=== PATIENT | male | born 1990 | race Caucasian/White ===

== ENCOUNTER 2016-11-15 22:18 | Emergency (ER) | payer SELFPAY ==
[2016-11-15 22:30] VITALS: BP 139/89
--- NOTE | 2016-11-16 00:48 | EDM.PDOC ---
ED HPI GENERAL MEDICAL PROBLEM - General Chief Complaint: Lower Extremity Injury/Pain Stated Complaint: FOOT PAIN [id number] Time Seen by Provider: 11/16/16 00:45 Source of Information: Reports: Patient History Limitations: Reports: No Limitations - History of Present Illness INITIAL COMMENTS - FREE TEXT/NARRATIVE: gives 2 days h/o numbness in left foot, feels weird, denies trauma Left Feet Pain Score (Numeric/FACES): 8 - Related Data Allergies Allergy/AdvReac Type Severity Reaction Status Date / Time No Known Allergies Allergy Verified 11/15/16 22:24 Home Meds: Home Meds Venlafaxine HCl [Venlafaxine ER] 1 tab PO DAILY 06/16/14 [History] Ibuprofen [Motrin] 4 tab PO Q8H PRN 03/26/15 [History] Past Medical History - Past Health History Medical/Surgical History: Denies Medical/Surgical History HEENT History: Reports: Impaired Vision Musculoskeletal History: Reports: Other (See Below) Neurological History: Reports: Other (See Below) Other Neuro History: cataplexy Psychiatric History: Reports: Depression Other Dermatologic History: Tattoos - Infectious Disease History Infectious Disease History: Reports: None Social & Family History - Family History Family Medical History: Noncontributory - Tobacco Use Smoking Status *Q: Current Every Day Smoker Years of Tobacco use: 15 Packs/Tins Daily: 1.5 Month Tobacco Last Used: march Second Hand Smoke Exposure: Yes - Caffeine Use Caffeine Use: Reports: Energy Drinks, Soda, Tea - Alcohol Use Days Per Week of Alcohol Use: 0 - Recreational Drug Use Recreational Drug Use: Yes Drug Use in Last 12 Months: Yes Recreational Drug Type: Reports: Marijuana/Hashish, Methamphetamine Recreational Drug Use Frequency: Weekly - Living Situation & Occupation Living situation: Reports: Single Occupation: Employed Review of Systems - Review of Systems Review Of Systems: ROS reveals no pertinent complaints other than HPI. ED EXAM, GENERAL - Physical Exam Exam: See Below Exam Limited By: No Limitations General Appearance: Alert, WD/WN, No Apparent Distress Ears: Hearing Grossly Normal Throat/Mouth: Normal Voice, No Airway Compromise Head: Atraumatic Neck: Non-Tender, Full Range of Motion Respiratory/Chest: No Respiratory Distress Cardiovascular: Regular Rate, Rhythm GI/Abdominal: Soft, Non-Tender Back Exam: Paraspinal Tenderness, Other (palpable sciatic irritation down left side.) Extremities: Other (left foot no gross D/D, NV wnl, gait normal.) Neurological: Alert, Oriented, Normal Cognition, Normal Gait, No Motor/Sensory Deficits Psychiatric: Flat Affect Skin Exam: Warm, Dry Lymphatic: No Adenopathy Course - Vital Signs Last Recorded V/S: Last Vital Signs Temp 36.0 C 11/15/16 22:27 Pulse 81 11/15/16 22:27 Resp 16 11/15/16 22:27 BP 139/89 11/15/16 22:27 Pulse Ox 96 11/15/16 22:27 - Orders/Labs/Meds Orders: Active Orders 24 hr Category Date Time Status Blood Glucose Check, Bedside [RC] ONETIME Care 11/16/16 00:34 Active Labs: Laboratory Tests 11/16/16 Range/Units 00:38 POC Glucose 89 (70-105) mg/dl Departure - Departure Time of Disposition: 00:47 Disposition: Home, Self-Care 01 Condition: Good Clinical Impression: Left sided sciatica - Discharge Information Forms: ED Department Discharge Additional Instructions: 1) see clinic Thursday for MRI SCAN OF LUMBAR possible herniated disc 2) recheck as needed - My Orders Last 24 Hours: My Active Orders 11/16/16 00:34 Blood Glucose Check, Bedside [RC] ONETIME - Assessment/Plan Last 24 Hours: My Active Orders 11/16/16 00:34 Blood Glucose Check, Bedside [RC] ONETIME
== END 2016-11-16 00:49 | disposition home or self-care (01) ==
LOC: DL.ED 22:18
DX: M54.32 Sciatica, left side (principal); H54.7 Unspecified visual loss; F32.9 Major depressive disorder, single episode, unspecified; F17.210 Nicotine dependence, cigarettes, uncomplicated; Z79.899 Other long term (current) drug therapy
CPT/HCPCS: 82962; 99282; 99283

== ENCOUNTER 2017-03-23 01:19 | Emergency (ER) | payer SELFPAY ==
[2017-03-23 01:25] VITALS: BP 128/91
[2017-03-23] MEDS ORDERED: Sodium Chloride 0.9% 1,000 ML IV ONE (01:45)
--- NOTE | 2017-03-23 01:45 | EDM.PDOC ---
ED HPI GENERAL MEDICAL PROBLEM - General Chief Complaint: Gastrointestinal Problem Stated Complaint: PASSING BLOOD [id number] Time Seen by Provider: 03/23/17 01:42 Source of Information: Reports: Patient History Limitations: Reports: No Limitations - History of Present Illness INITIAL COMMENTS - FREE TEXT/NARRATIVE: states 12 hours ago had BM and saw lots of blood in toilet, now worried. Abdomen Pain Score (Numeric/FACES): 5 - Related Data Allergies Allergy/AdvReac Type Severity Reaction Status Date / Time No Known Allergies Allergy Verified 03/23/17 01:25 Home Meds: Home Meds Venlafaxine HCl [Venlafaxine ER] 1 tab PO DAILY 06/16/14 [History] Ibuprofen [Motrin] 4 tab PO Q8H PRN 03/26/15 [History] Past Medical History - Past Health History Medical/Surgical History: Denies Medical/Surgical History HEENT History: Reports: Impaired Vision Musculoskeletal History: Reports: Other (See Below) Neurological History: Reports: Other (See Below) Other Neuro History: cataplexy Psychiatric History: Reports: Depression Other Dermatologic History: Tattoos - Infectious Disease History Infectious Disease History: Reports: None Social & Family History - Family History Family Medical History: Noncontributory - Tobacco Use Smoking Status *Q: Current Every Day Smoker Years of Tobacco use: 5 Packs/Tins Daily: 1 Month Tobacco Last Used: march Second Hand Smoke Exposure: Yes - Caffeine Use Caffeine Use: Reports: Energy Drinks, Soda, Tea - Alcohol Use Days Per Week of Alcohol Use: 0 - Recreational Drug Use Recreational Drug Use: No Drug Use in Last 12 Months: Yes Recreational Drug Type: Reports: Marijuana/Hashish, Methamphetamine Recreational Drug Use Frequency: Weekly - Living Situation & Occupation Living situation: Reports: Single Occupation: Employed ED ROS GENERAL - Review of Systems Review Of Systems: ROS reveals no pertinent complaints other than HPI. ED EXAM, GI/ABD - Physical Exam Exam: See Below Exam Limited By: No Limitations General Appearance: Alert, WD/WN, No Apparent Distress, Anxious Ears: Hearing Grossly Normal Throat/Mouth: Normal Voice, No Airway Compromise Head: Atraumatic Neck: Non-Tender, Full Range of Motion Respiratory/Chest: No Respiratory Distress Cardiovascular: Regular Rate, Rhythm GI/Abdominal Exam: Soft, Guarding, Tender, Other (RLQ tender>). No: Distended, Rigid, Rebound Rectal (Males) Exam: Other (grossly bloody smear, no active bleeding.) Neurological: Alert, Oriented, Normal Cognition, Normal Gait, No Motor/Sensory Deficits Psychiatric: Anxious Skin Exam: Warm, Dry, Normal Color Lymphatic: No Adenopathy Course - Vital Signs Last Recorded V/S: Last Vital Signs Temp 36.4 C 03/23/17 01:21 Pulse 92 03/23/17 01:21 Resp 18 03/23/17 01:21 BP 128/91 H 03/23/17 01:21 Pulse Ox 97 03/23/17 01:21 - Orders/Labs/Meds Orders: Active Orders 24 hr Category Date Time Status Abdomen Pelvis w Cont [CT] Urgent Exams 03/23/17 02:07 Ordered Sodium Chloride 0.9% [Normal Saline] 1,000 ml Med 03/23/17 01:45 Active IV .BOLUS Medication Orders Sodium Chloride (Normal Saline) 1,000 mls @ 999 mls/hr IV .BOLUS ONE Stop: 03/23/17 02:45 Last Admin: 03/23/17 01:49 Dose: 999 mls/hr Labs: Laboratory Tests 03/23/17 03/23/17 Range/Units 01:35 01:35 WBC 17.4 H (5.0-10.0) 10^3/uL RBC 5.06 (4.6-6.2) 10^6/uL Hgb 15.4 (14.0-18.0) g/dL Hct 44.8 (40.0-54.0) % MCV 88.5 (80-100) fL MCH 30.4 (27.0-34.0) pg MCHC 34.4 (33.0-35.0) g/dL Plt Count 423 (150-450) 10^3/uL Neut % (Auto) 59.5 (42.2-75.2) % Lymph % (Auto) 29.4 (20.5-50.1) % [place] % (Auto) 9.5 H (2-8) % Eos % (Auto) 1.4 (1.0-3.0) % Baso % (Auto) 0.2 (0.0-1.0) % Sodium 139 (135-145) mmol/L Potassium 3.7 (3.6-5.0) mmol/L Chloride 100 L (101-111) mmol/L Carbon Dioxide 26.0 (21.0-31.0) mmol/L Anion Gap 16.7 BUN 18 (7-18) mg/dL Creatinine 0.9 (0.6-1.3) mg/dL Est Cr Clr Drug Dosing 128.43 mL/min Estimated GFR (MDRD) > 60 BUN/Creatinine Ratio 20.00 Glucose 91 (74-105) mg/dL Calcium 10.1 (8.4-10.2) mg/dl Total Bilirubin 1.5 H (0.2-1.0) mg/dL AST 20 (10-42) IU/L ALT 19 (10-60) IU/L Alkaline Phosphatase 102 (42-121) IU/L Total Protein 8.0 (6.7-8.2) g/dl Albumin 5.1 (3.2-5.5) g/dl Globulin 2.9 Albumin/Globulin Ratio 1.76 Meds: Medications Generic Name Dose Route Start Last Admin Trade Name Freq PRN Reason Stop Dose Admin Sodium Chloride 1,000 mls @ 999 mls/hr 03/23/17 01:45 03/23/17 01:49 Normal Saline IV 03/23/17 02:45 999 mls/hr .BOLUS ONE Administration Discontinued Medications Generic Name Dose Route Start Last Admin Trade Name Freq PRN Reason Stop Dose Admin Iopamidol 100 ml 03/23/17 02:07 03/23/17 02:19 Isovue-300 (61%) IVPUSH 03/23/17 02:08 100 ml ONETIME ONE Administration - Re-Assessments/Exams Free Text/Narrative Re-Assessment/Exam: 03/23/17 02:34 pt declined CAT in x-ray dept. explained to Pt about dangers of rupture appy. pt states has no pain now, it's all gone and doesn't want anymore tests and also states cannot pay the bill. explained to pt about medicaid aid. pt still adamant about leaving AMA. Departure - Departure Time of Disposition: 02:37 Disposition: Against Medical Advice 07 Condition: Fair Clinical Impression: Abdominal pain, Poor compliance Elevated WBC count Qualifiers: Leukocytosis type: other Qualified Code(s): D72.828 - Other elevated white blood cell count - Discharge Information Forms: ED Department Discharge, Refusal of Care AMA Additional Instructions: PLEASE RETURN IF YOUR CONDITION WORSENS OR IF YOU CHANGE YOUR MIND AVOID SOLID FOODS NEXT 48 HOURS FOLLOW UP AT CLINIC FOR GASTROENTEROLOGY REFERRAL - My Orders Last 24 Hours: My Active Orders 03/23/17 01:45 Sodium Chloride 0.9% [Normal Saline] 1,000 ml IV .BOLUS 03/23/17 02:07 Abdomen Pelvis w Cont [CT] Urgent - Assessment/Plan Last 24 Hours: My Active Orders 03/23/17 01:45 Sodium Chloride 0.9% [Normal Saline] 1,000 ml IV .BOLUS 03/23/17 02:07 Abdomen Pelvis w Cont [CT] Urgent
[2017-03-23 02:02] LABS: CHLORIDE,CL 100 mmol/L (101-111); SODIUM,NA 139 mmol/L (135-145)
[2017-03-23] MEDS: Iopamidol 612 MG/ML 100 ML Bottle IVPUSH ONE ×2 (02:19→02:35)
== END 2017-03-23 02:46 | disposition left against medical advice (07) ==
LOC: DL.ED 01:19
DX: R10.9 Unspecified abdominal pain (principal); D72.828 Other elevated white blood cell count; F17.210 Nicotine dependence, cigarettes, uncomplicated; Z79.899 Other long term (current) drug therapy
CPT/HCPCS: 36415; 80053; 82272; 85025; 96360; 99284; J7030; Q9967

== ENCOUNTER 2017-05-13 08:20 | Emergency (ER) | payer SELFPAY ==
[2017-05-13 08:29] VITALS: BP 153/95
--- NOTE | 2017-05-13 08:29 | EDM.PDOC ---
ED HPI GENERAL MEDICAL PROBLEM - General Chief Complaint: ENT Problem Stated Complaint: TOOTH ABSESS, RT SIDE Time Seen by Provider: 05/13/17 08:27 Source of Information: Reports: Patient, RN, RN Notes Reviewed History Limitations: Reports: No Limitations - History of Present Illness INITIAL COMMENTS - FREE TEXT/NARRATIVE: C/O dental pain with gum swelling at the right lower molar area at began a few days ago, but was much worse when he woke up this morning. Pt states that pain radiates into the Rt ear and down the right jaw. Denies face swelling, fever, chills, or drainage from the affected tooth or gums. Pt report a long history of dental decay without seeking dental care. Onset: Gradual Duration: Constant, Getting Worse Location: Reports: Other (dental) Quality: Reports: Ache, Same as Previous Episode, Throbbing Severity: Severe Improves with: Reports: None Worsens with: Reports: Eating Associated Symptoms: Reports: No Other Symptoms Right Oral/Mouth Pain Score (Numeric/FACES): 10 - Related Data Allergies Allergy/AdvReac Type Severity Reaction Status Date / Time No Known Allergies Allergy Verified 05/13/17 08:29 Home Meds: Home Meds Venlafaxine HCl [Venlafaxine ER] 1 tab PO DAILY 06/16/14 [History] Ibuprofen [Motrin] 4 tab PO Q8H PRN 03/26/15 [History] Past Medical History - Past Health History Medical/Surgical History: Denies Medical/Surgical History HEENT History: Reports: Impaired Vision Musculoskeletal History: Reports: Other (See Below) Neurological History: Reports: Other (See Below) Other Neuro History: cataplexy Psychiatric History: Reports: Depression Other Dermatologic History: Tattoos - Infectious Disease History Infectious Disease History: Reports: None Social & Family History - Family History Family Medical History: Noncontributory - Tobacco Use Smoking Status *Q: Current Every Day Smoker Years of Tobacco use: 5 Packs/Tins Daily: 1 Month Tobacco Last Used: march Second Hand Smoke Exposure: Yes - Caffeine Use Caffeine Use: Reports: Energy Drinks, Soda, Tea - Alcohol Use Days Per Week of Alcohol Use: 0 - Recreational Drug Use Recreational Drug Use: No Drug Use in Last 12 Months: Yes Recreational Drug Type: Reports: Marijuana/Hashish, Methamphetamine Recreational Drug Use Frequency: Weekly - Living Situation & Occupation Living situation: Reports: Single Occupation: Employed ED ROS ENT - Review of Systems Review Of Systems: ROS reveals no pertinent complaints other than HPI. ED EXAM, ENT - Physical Exam Exam: See Below Exam Limited By: No Limitations General Appearance: Alert, WD/WN, No Apparent Distress Eye Exam: Bilateral Eye: Normal Inspection Ears: Normal External Exam, Normal Canal, Hearing Grossly Normal, Normal TMs Nose: Normal Inspection Mouth/Throat: Normal Lips, Normal Oropharynx, Dental Abcess (Rt mandibular molar ), Dental Pain (with extensive dental decay, large deep caries at the Rt mandibular molars), Dental Tenderness, Gum Swelling (Rt mandibular molar region) Head: Atraumatic, Normocephalic Neck: Normal Inspection, Supple, Non-Tender, Full Range of Motion. No: Lymphadenopathy (L), Lymphadenopathy (R) Respiratory/Chest: No Respiratory Distress Neurological: Alert, No Motor/Sensory Deficits Psychiatric: Normal Affect, Normal Mood Skin: Warm, Dry, Intact, Normal Color, No Rash Course - Vital Signs Last Recorded V/S: Last Vital Signs Temp 36.2 C 05/13/17 08:25 Pulse 88 05/13/17 08:25 Resp 16 05/13/17 08:25 BP 153/95 H 05/13/17 08:25 Pulse Ox 97 05/13/17 08:25 - Orders/Labs/Meds Meds: Medications Discontinued Medications Generic Name Dose Route Start Last Admin Trade Name Rishabh PRN Reason Stop Dose Admin Bupivacaine HCl 10 ml 05/13/17 08:38 Sensorcaine-Mpf 0.5% INJECT 05/13/17 08:39 ONETIME ONE Clindamycin HCl 300 mg 05/13/17 08:38 Cleocin PO 05/13/17 08:39 ONETIME ONE Lidocaine HCl 15 ml 05/13/17 08:37 Xylocaine 2% Viscous PO 05/13/17 08:38 ONETIME ONE - Re-Assessments/Exams Free Text/Narrative Re-Assessment/Exam: 05/13/17 08:48 Mandibular dental block using Marcaine 0.5% 4cc, no complications. Departure - Departure Time of Disposition: 09:00 Disposition: Home, Self-Care 01 Condition: Good Clinical Impression: Dental caries, Abscessed tooth - Discharge Information Instructions: Dental Abscess, [id number], Dental Caries, [id number] Forms: ED Department Discharge Additional Instructions: Rx: Clindamycin 300mg Rx: Viscous Lidocaine 2% Rx: Tylenol Codeine 30mg/300mg *Do not drive while under the influence of this medication. Follow up with a dentist at the first available appointment.
[2017-05-13] MEDS ORDERED: Lidocaine 2% Viscous Solution 15 ML Cup PO ONE (08:37)
[2017-05-13] MEDS ORDERED: Bupivacaine 0.5% 10 ML SDV INJECT ONE (08:38)
[2017-05-13] MEDS ORDERED: Clindamycin HCl 150 MG Cap PO ONE (08:38)
== END 2017-05-13 09:12 | disposition home or self-care (01) ==
LOC: DL.ED 08:20
DX: K02.9 Dental caries, unspecified (principal); K04.7 Periapical abscess without sinus; F32.9 Major depressive disorder, single episode, unspecified; F17.210 Nicotine dependence, cigarettes, uncomplicated; Z79.899 Other long term (current) drug therapy
CPT/HCPCS: 64400; 99283; A9270

== ENCOUNTER 2017-12-19 20:00 | Emergency (ER) | payer SELFPAY ==
[2017-12-19 21:08] VITALS: BP 162/123
[2017-12-19] MEDS ORDERED: Acetaminophen/HYDROcodone 325-10 MG Tab PO ONE (22:13)
[2017-12-19] MEDS ORDERED: Clindamycin HCl 150 MG Cap PO ONE (22:13)
--- NOTE | 2017-12-19 22:14 | EDM.PDOC ---
ED HPI GENERAL MEDICAL PROBLEM - General Chief Complaint: ENT Problem Stated Complaint: TOOTH PAIN [id number] Time Seen by Provider: 12/19/17 22:08 Source of Information: Reports: Patient History Limitations: Reports: No Limitations - History of Present Illness INITIAL COMMENTS - FREE TEXT/NARRATIVE: angry pt c/o tooth pain. explained to angry pt that there is no dentist cardiology consultant here but I can give him ABX & pain meds tonight with a script. 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 Right Face Pain Score (Numeric/FACES): 10 - Related Data Allergies Allergy/AdvReac Type Severity Reaction Status Date / Time No Known Allergies Allergy Verified 12/19/17 20:43 Home Meds: Home Meds Venlafaxine HCl [Venlafaxine ER] 125 mg PO DAILY 06/16/14 [History] Ibuprofen [Motrin] 4 tab PO Q8H PRN 03/26/15 [History] Past Medical History - Past Health History Medical/Surgical History: Denies Medical/Surgical History HEENT History: Reports: Impaired Vision Cardiovascular History: Reports: None Respiratory History: Reports: None Gastrointestinal History: Reports: None Genitourinary History: Reports: None Musculoskeletal History: Reports: Other (See Below) Neurological History: Reports: Other (See Below) Other Neuro History: cataplexy Psychiatric History: Reports: Depression Endocrine/Metabolic History: Reports: None Hematologic History: Reports: None Immunologic History: Reports: None Oncologic (Cancer) History: Reports: None Other Dermatologic History: Tattoos - Infectious Disease History Infectious Disease History: Reports: None - Past Surgical History Head Surgeries/Procedures: Reports: None Social & Family History - Family History Family Medical History: Noncontributory - Tobacco Use Smoking Status *Q: Current Every Day Smoker Years of Tobacco use: 2 Packs/Tins Daily: 1.5 - Caffeine Use Caffeine Use: Reports: Soda Other Caffeine Use: 12 cans mt. dew /day - Recreational Drug Use Recreational Drug Use: No - Living Situation & Occupation Living situation: Reports: Single Occupation: Employed ED ROS ENT - Review of Systems Review Of Systems: ROS reveals no pertinent complaints other than HPI. ED EXAM, ENT - Physical Exam Exam: See Below Exam Limited By: No Limitations General Appearance: Alert, WD/WN, Mild Distress, Other (angry & cussing ) Ears: Hearing Grossly Normal Mouth/Throat: Dental Abcess, Dental Pain, Dental Tenderness, Other (extensive decay along right lower molars). No: Drooling Head: Atraumatic Neck: Non-Tender, Full Range of Motion Respiratory/Chest: No Respiratory Distress Cardiovascular: Regular Rate, Rhythm GI/Abdominal: Soft, Non-Tender Neurological: Alert, Oriented, Normal Cognition, Normal Gait, No Motor/Sensory Deficits Psychiatric: Other (angry) Skin: Warm, Intact Lymphatic: No Adenopathy Course - Vital Signs Last Recorded V/S: Last Vital Signs Temp 36.7 C 12/19/17 20:37 Pulse 70 12/19/17 20:37 Resp 26 H 12/19/17 21:07 BP 162/123 H 12/19/17 21:07 Pulse Ox 100 12/19/17 20:37 - Orders/Labs/Meds Meds: Medications Discontinued Medications Generic Name Dose Route Start Last Admin Trade Name Freq PRN Reason Stop Dose Admin Hydrocodone Bitart/Acetaminophen 1 tab 12/19/17 22:13 12/19/17 22:18 [place] 325-10 Mg PO 12/19/17 22:14 1 tab ONETIME ONE Administration Clindamycin HCl 300 mg 12/19/17 22:13 12/19/17 22:18 Cleocin PO 12/19/17 22:14 300 mg ONETIME ONE Administration Departure - Departure Time of Disposition: 22:20 Disposition: Home, Self-Care 01 Condition: Fair Clinical Impression: Dental caries extending into dentin, Abscessed tooth - Discharge Information Instructions: Dental Abscess, [id number] Forms: ED Department Discharge Additional Instructions: 1) see dentist Thursday 2) avoid solid foods rx given; clindamycin 150mg qid x 40 vicodin 5/325mg bid x 4
== END 2017-12-19 22:23 | disposition home or self-care (01) ==
LOC: DL.ED 20:00
DX: K02.9 Dental caries, unspecified (principal); K04.7 Periapical abscess without sinus; F17.210 Nicotine dependence, cigarettes, uncomplicated; Z79.899 Other long term (current) drug therapy
CPT/HCPCS: 99282; A9270; 99283

== ENCOUNTER 2020-01-14 04:38 | Emergency (ER) | payer MEDICAID, OTHER ==
[2020-01-14] MEDS ORDERED: Lidocaine 2% Viscous Solution 15 ML Cup PO ONE (04:39)
[2020-01-14] MEDS ORDERED: Clindamycin HCl 150 MG Cap PO ONE (04:39)
[2020-01-14 04:46] VITALS: BP 152/111; PULSE 55
[2020-01-14] MEDS ORDERED: Clindamycin HCl 150 MG Cap ONE (05:07)
[2020-01-14] MEDS ORDERED: Lidocaine 2% Viscous Solution 15 ML Cup ONE (05:07)
--- NOTE | 2020-01-14 05:09 | EDM.PDOC ---
ED HPI GENERAL MEDICAL PROBLEM - General Chief Complaint: ENT Problem Stated Complaint: TOOTH PAIN Time Seen by Provider: 01/14/20 04:55 Source of Information: Reports: Patient, RN History Limitations: Reports: No Limitations - History of Present Illness INITIAL COMMENTS - FREE TEXT/NARRATIVE: c/o dental pain Right Lower Tooth/Teeth Pain Score (Numeric/FACES): 10 - Related Data Allergies Allergy/AdvReac Type Severity Reaction Status Date / Time No Known Allergies Allergy Verified 01/14/20 04:43 Home Meds: Home Meds Venlafaxine HCl [Venlafaxine ER] 125 mg PO DAILY 06/16/14 [History] Ibuprofen [Motrin] 4 tab PO Q8H PRN 03/26/15 [History] Past Medical History - Past Health History Medical/Surgical History: Denies Medical/Surgical History HEENT History: Reports: Impaired Vision Cardiovascular History: Reports: None Respiratory History: Reports: None Gastrointestinal History: Reports: None Genitourinary History: Reports: None Musculoskeletal History: Reports: Other (See Below) Neurological History: Reports: Other (See Below) Other Neuro History: cataplexy Psychiatric History: Reports: Depression Endocrine/Metabolic History: Reports: None Hematologic History: Reports: None Immunologic History: Reports: None Oncologic (Cancer) History: Reports: None Other Dermatologic History: Tattoos - Infectious Disease History Infectious Disease History: Reports: None - Past Surgical History Head Surgeries/Procedures: Reports: None Social & Family History - Family History Family Medical History: Noncontributory - Tobacco Use Smoking Status *Q: Current Every Day Smoker Years of Tobacco use: 10 Packs/Tins Daily: 1 - Caffeine Use Caffeine Use: Reports: Coffee, Energy Drinks, Soda, Tea Other Caffeine Use: 12 cans mt. dew /day - Recreational Drug Use Recreational Drug Use: Yes Recreational Drug Type: Reports: Marijuana/Hashish - Living Situation & Occupation Living situation: Reports: Single Occupation: Employed ED ROS ENT - Review of Systems Review Of Systems: See Below Constitutional: Reports: No Symptoms HEENT: Reports: Dental Pain Respiratory: Reports: No Symptoms Cardiovascular: Reports: No Symptoms Endocrine: Reports: No Symptoms GI/Abdominal: Reports: No Symptoms : Reports: No Symptoms Musculoskeletal: Reports: No Symptoms Skin: Reports: No Symptoms Neurological: Reports: No Symptoms ED EXAM, ENT - Physical Exam Exam: See Below Exam Limited By: No Limitations General Appearance: Alert, Mild Distress Eye Exam: Bilateral Eye: EOMI, PERRL Nose: Normal Inspection Mouth/Throat: No: Normal Teeth (extremely poor dentation, multiple upper and lower molars decayed bilateral flush with gum line, mild erythema and slight swelling lower right medial posterior gum tissue), Dental Pain Head: Atraumatic, Normocephalic Neck: Normal Inspection, Full Range of Motion. No: Limited Range of Motion, Lymphadenopathy (L), Lymphadenopathy (R) Respiratory/Chest: No Respiratory Distress, Lungs Clear, Normal Breath Sounds Cardiovascular: Normal Peripheral Pulses, Regular Rate, Rhythm GI/Abdominal: Normal Bowel Sounds Extremities: Normal Inspection, Normal Range of Motion Neurological: Alert, Oriented, CN II-XII Intact, Normal Reflexes Course - Vital Signs Last Recorded V/S: Last Vital Signs Temp 98.1 F 01/14/20 04:44 Pulse 55 L 01/14/20 04:44 Resp 16 01/14/20 04:44 BP 152/111 H 01/14/20 04:44 Pulse Ox 99 01/14/20 04:44 - Orders/Labs/Meds Meds: Medications Discontinued Medications Generic Name Dose Route Start Last Admin Trade Name Mikaq PRN Reason Stop Dose Admin Clindamycin HCl Confirm 01/14/20 05:07 Cleocin Administered 01/14/20 05:08 Dose 300 mg .ROUTE .STK-MED ONE Lidocaine HCl Confirm 01/14/20 05:07 Xylocaine 2% Viscous Administered 01/14/20 05:08 Dose 15 ml .ROUTE .STK-MED ONE Departure - Departure Time of Disposition: 05:06 Disposition: Home, Self-Care 01 Condition: Good Clinical Impression: Dental caries, Abscessed tooth - Discharge Information *PRESCRIPTION DRUG MONITORING PROGRAM REVIEWED*: No *COPY OF PRESCRIPTION DRUG MONITORING REPORT IN PATIENT SARITA: No Instructions: Dental Abscess, [id number] Referrals: PCP,None [Primary Care Provider] - Forms: ED Department Discharge Additional Instructions: viscous lidocaine apply thin film to affected area every 2 hours as needed for oral discomfort avoid chewing on affected side avoid liquids that are either hot or cold alternate tylenol 650mg and ibuprofen 600mg every 4 hours as needed for severe discomfort Follow up with Dentist on Thursday morning clindamycin 300mg three times daily for one week Sepsis Event Note (ED) - Evaluation Sepsis Screening Result: No Definite Risk - Focused Exam Vital Signs: Vital Signs Temp Pulse Resp BP Pulse Ox 01/14/20 04:44 98.1 F 55 L 16 152/111 H 99
== END 2020-01-14 05:13 | disposition home or self-care (01) ==
LOC: DL.ED 04:38
DX: K04.7 Periapical abscess without sinus (principal); K02.9 Dental caries, unspecified; K00.7 Teething syndrome; F32.9 Major depressive disorder, single episode, unspecified; F17.210 Nicotine dependence, cigarettes, uncomplicated; Z79.899 Other long term (current) drug therapy
CPT/HCPCS: 99282; A9270

== ENCOUNTER 2020-04-26 20:14 | Emergency (ER) | payer MEDICAID ==
[2020-04-26] MEDS ORDERED: Lidocaine 2% Viscous Solution 15 ML Cup PO ONE (20:15)
[2020-04-26] MEDS ORDERED: Acetaminophen/HYDROcodone 325-10 MG Tab PO ONE (20:15)
[2020-04-26 20:31] VITALS: BP 170/105; PULSE 95
--- NOTE | 2020-04-26 20:32 | EDM.PDOC ---
ED HPI GENERAL MEDICAL PROBLEM - General Chief Complaint: ENT Problem Stated Complaint: TOOTH INFECTION Time Seen by Provider: 04/26/20 20:28 Source of Information: Reports: Patient History Limitations: Reports: No Limitations - History of Present Illness INITIAL COMMENTS - FREE TEXT/NARRATIVE: c/o recurrent tooth problem - Related Data Allergies Allergy/AdvReac Type Severity Reaction Status Date / Time No Known Allergies Allergy Verified 01/14/20 04:43 Home Meds: Home Meds Venlafaxine HCl [Venlafaxine ER] 125 mg PO DAILY 06/16/14 [History] Ibuprofen [Motrin] 4 tab PO Q8H PRN 03/26/15 [History] Past Medical History - Past Health History Medical/Surgical History: Denies Medical/Surgical History HEENT History: Reports: Impaired Vision Cardiovascular History: Reports: None Respiratory History: Reports: None Gastrointestinal History: Reports: None Genitourinary History: Reports: None Musculoskeletal History: Reports: Other (See Below) Neurological History: Reports: Other (See Below) Other Neuro History: cataplexy Psychiatric History: Reports: Depression Endocrine/Metabolic History: Reports: None Hematologic History: Reports: None Immunologic History: Reports: None Oncologic (Cancer) History: Reports: None Other Dermatologic History: Tattoos - Infectious Disease History Infectious Disease History: Reports: None - Past Surgical History Head Surgeries/Procedures: Reports: None Social & Family History - Family History Family Medical History: No Pertinent Family History - Caffeine Use Caffeine Use: Reports: Coffee, Energy Drinks, Soda, Tea Other Caffeine Use: 12 cans mt. dew /day - Living Situation & Occupation Living situation: Reports: Single Occupation: Employed ED ROS ENT - Review of Systems Review Of Systems: Comprehensive ROS is negative, except as noted in HPI. ED EXAM, ENT - Physical Exam Exam: See Below Exam Limited By: No Limitations General Appearance: Alert, WD/WN, Mild Distress, Other (discomfort) Ears: Hearing Grossly Normal Mouth/Throat: Dental Abcess, Dental Pain, Dental Tenderness, Other (multiple decay) Head: Atraumatic Neck: Non-Tender, Full Range of Motion Respiratory/Chest: No Respiratory Distress Cardiovascular: Regular Rate, Rhythm GI/Abdominal: Soft, Non-Tender (Male) Exam: Deferred Rectal (Males) Exam: Deferred Neurological: Alert, Oriented, Normal Cognition, Normal Gait, No Motor/Sensory Deficits Psychiatric: Flat Affect Skin: Warm, Dry, Normal Color Lymphatic: No Adenopathy Course - Orders/Labs/Meds Meds: Medications Discontinued Medications Generic Name Dose Route Start Last Admin Trade Name Rishabh PRN Reason Stop Dose Admin Clindamycin HCl 300 mg 04/26/20 20:27 Cleocin PO 04/26/20 20:28 ONETIME ONE Departure - Departure Time of Disposition: 20:30 Disposition: Home, Self-Care 01 Condition: Good Clinical Impression: Dental caries, Dental caries extending into dentin, Dental abscess - Discharge Information Instructions: Dental Abscess, [id number] Additional Instructions: 1) avoid solid foods 2) see Dentist Thursday rx togo; viscous lido norco x1 rx given; clindamycin 300mg qid x 40
[2020-04-26] MEDS: Lidocaine 2% Viscous Solution 15 ML Cup ONE (20:46)
[2020-04-26] MEDS: Acetaminophen/HYDROcodone 325-10 MG Tab ONE (20:47)
[2020-04-26] MEDS: Clindamycin HCl 150 MG Cap PO ONE (20:48)
== END 2020-04-26 20:51 | disposition home or self-care (01) ==
LOC: DL.ED 20:14
DX: K04.7 Periapical abscess without sinus (principal); K02.9 Dental caries, unspecified; F32.9 Major depressive disorder, single episode, unspecified; Z79.899 Other long term (current) drug therapy
CPT/HCPCS: 99282; A9270

== ENCOUNTER 2020-06-15 21:48 | Emergency (ER) | payer MEDICAID ==
--- NOTE | 2020-06-15 22:00 | EDM.PDOC ---
ED HPI GENERAL MEDICAL PROBLEM - General Chief Complaint: ENT Problem Stated Complaint: ABCESS BOTTOM RIGHT JAW Time Seen by Provider: 06/15/20 21:59 Source of Information: Reports: Patient, RN, RN Notes Reviewed - History of Present Illness INITIAL COMMENTS - FREE TEXT/NARRATIVE: Patient is a 29 year old male who presents to the ER with c/o dental abscess. Patient states he has had dental abscess in the past but not "like this". He states it has never been this swollen. Patient states this began earlier today. Patient denies fever or chills, N/V/D. Denies allergies to any medications. Onset: Gradual Right Lower Tooth/Teeth Pain Score (Numeric/FACES): 7 - Related Data Allergies Allergy/AdvReac Type Severity Reaction Status Date / Time No Known Allergies Allergy Verified 06/15/20 22:07 Home Meds: Home Meds Venlafaxine HCl [Venlafaxine ER] 125 mg PO DAILY 06/16/14 [History] Ibuprofen [Motrin] 4 tab PO Q8H PRN 03/26/15 [History] Past Medical History - Past Health History Medical/Surgical History: Denies Medical/Surgical History HEENT History: Reports: Impaired Vision Cardiovascular History: Reports: None Respiratory History: Reports: None Gastrointestinal History: Reports: None Genitourinary History: Reports: None Musculoskeletal History: Reports: Other (See Below) Neurological History: Reports: Other (See Below) Other Neuro History: cataplexy Psychiatric History: Reports: Addiction, Depression Endocrine/Metabolic History: Reports: None Hematologic History: Reports: None Immunologic History: Reports: None Oncologic (Cancer) History: Reports: None Other Dermatologic History: Tattoos - Infectious Disease History Infectious Disease History: Reports: None - Past Surgical History Head Surgeries/Procedures: Reports: None Social & Family History - Family History Family Medical History: No Pertinent Family History - Caffeine Use Caffeine Use: Reports: Coffee, Energy Drinks, Soda, Tea Other Caffeine Use: 12 cans mt. dew /day - Living Situation & Occupation Living situation: Reports: Single Occupation: Employed ED ROS GENERAL - Review of Systems Review Of Systems: Comprehensive ROS is negative, except as noted in HPI. ED EXAM, GENERAL - Physical Exam Exam: See Below Exam Limited By: No Limitations General Appearance: Alert, WD/WN, Mild Distress Eye Exam: Bilateral Eye: EOMI, Normal Inspection Ears: Normal External Exam, Hearing Grossly Normal Nose: Normal Inspection Throat/Mouth: Normal Voice, No Airway Compromise, Inflammation, Other (abscess to the right lower gums, lateral to the first molar) Head: Atraumatic, Normocephalic Neck: Normal Inspection, Supple, Non-Tender, Full Range of Motion Respiratory/Chest: No Respiratory Distress, Lungs Clear, Normal Breath Sounds, No Accessory Muscle Use, Chest Non-Tender Cardiovascular: Normal Peripheral Pulses, Regular Rate, Rhythm, No Edema, No Gallop, No JVD, No Murmur, No Rub Peripheral Pulses: 2+: Radial (L), Radial (R) GI/Abdominal: Normal Bowel Sounds, Soft, Non-Tender (Male) Exam: Deferred Rectal (Males) Exam: Deferred Back Exam: Normal Inspection, Full Range of Motion, NT Extremities: Normal Inspection, Normal Range of Motion, Non-Tender, Normal Capillary Refill, No Pedal Edema Neurological: Alert, Oriented, CN II-XII Intact, Normal Cognition, Normal Gait, Normal Reflexes, No Motor/Sensory Deficits Psychiatric: Normal Affect, Normal Mood Skin Exam: Warm, Dry, Intact, Normal Color, No Rash Lymphatic: No Adenopathy ED GENERAL MEDICAL PROCEDURES - Additional/Other Procedure(s) Other (Free Text) Procedure(s): Large abscess in the right lower gums was broken open with provider's gloved finger. Area probed for loculations. Moderate amount of purulent bloody drainage from the area. Patient tolerated well. Viscous lidocaine was applied on a gauze prior to the procedure as well as after. No complications. Course - Vital Signs Last Recorded V/S: Last Vital Signs Temp 98.9 F 06/15/20 21:58 Pulse 99 06/15/20 21:58 Resp 19 06/15/20 21:58 BP 161/100 H 06/15/20 21:58 Pulse Ox 100 06/15/20 21:58 - Orders/Labs/Meds Meds: Medications Discontinued Medications Generic Name Dose Route Start Last Admin Trade Name Freq PRN Reason Stop Dose Admin Hydrocodone Bitart/Acetaminophen 1 tab 06/15/20 22:06 06/15/20 22:14 [place] 325-10 Mg PO 06/15/20 22:07 1 tab ONETIME ONE Administration Amoxicillin 500 mg 06/15/20 22:06 06/15/20 22:14 Amoxil PO 06/15/20 22:07 500 mg ONETIME ONE Administration Lidocaine HCl 15 ml 06/15/20 22:06 06/15/20 22:14 Xylocaine 2% Viscous PO 06/15/20 22:07 15 ml ONETIME ONE Administration Departure - Departure Time of Disposition: 22:28 Disposition: Home, Self-Care 01 Condition: Good Clinical Impression: Dental caries extending into dentin, Abscessed tooth - Discharge Information *PRESCRIPTION DRUG MONITORING PROGRAM REVIEWED*: No *COPY OF PRESCRIPTION DRUG MONITORING REPORT IN PATIENT SARITA: No Instructions: Dental Abscess, [id number] Forms: ED Department Discharge Additional Instructions: RX: Amoxicillin, [place] x5 May use tylenol and/or Ibuprofen as directed for pain/fever Follow up with dentist ANA Swish with mouthwash 2-3 times daily May use Anbesol or Orajel as tolerated/directed Sepsis Event Note (ED) - Focused Exam Vital Signs: Vital Signs Temp Pulse Resp BP Pulse Ox 06/15/20 21:58 98.9 F 99 19 161/100 H 100
[2020-06-15] MEDS ORDERED: Amoxicillin 500 MG Cap PO ONE (22:06)
[2020-06-15] MEDS ORDERED: Lidocaine 2% Viscous Solution 15 ML Cup PO ONE (22:06)
[2020-06-15] MEDS ORDERED: Acetaminophen/HYDROcodone 325-10 MG Tab PO ONE (22:06)
[2020-06-15 22:07] VITALS: BP 161/100; PULSE 99
== END 2020-06-15 22:37 | disposition home or self-care (01) ==
LOC: DL.ED 21:48
DX: K04.7 Periapical abscess without sinus (principal); K02.9 Dental caries, unspecified
CPT/HCPCS: 99282; 99283; A9270

== ENCOUNTER 2020-11-18 18:57 | Emergency (ER) | payer MEDICAID ==
[2020-11-18] MEDS ORDERED: Ketorolac 30 MG/ML SDV IM ONE (20:54)
[2020-11-18] MEDS ORDERED: Penicillin V Potassium 250 MG Tab PO ONE (21:00)
--- NOTE | 2020-11-18 21:02 | EDM.PDOC ---
ED HPI GENERAL MEDICAL PROBLEM - General Chief Complaint: ENT Problem Stated Complaint: TEETH PAIN ALL THE BACK ONES ON THE LEFT SIDE Time Seen by Provider: 11/18/20 20:30 Source of Information: Reports: Patient, RN History Limitations: Reports: No Limitations - History of Present Illness INITIAL COMMENTS - FREE TEXT/NARRATIVE: 30 year-old male who presents to the ER with complaints of dental pain x 1 day. Patient reports pain has been intermittent for over the past 1 month. He has tried Orajel and Tylenol with little relief. He rates pain as an 8 out of 10 10 being the worst pain and describes it as throbbing. He reports he is supposed to see a dentist but has not been able to get to it. Nothing makes pain worse or better. Has any fevers, chills, shortness of breath, chest pain or palpitations. Tooth/Teeth Pain Score (Numeric/FACES): 10 - Related Data Allergies Allergy/AdvReac Type Severity Reaction Status Date / Time No Known Allergies Allergy Verified 11/18/20 19:17 Home Meds: Home Meds Venlafaxine HCl [Venlafaxine ER] 125 mg PO DAILY 06/16/14 [History] Ibuprofen [Motrin] 4 tab PO Q8H PRN 03/26/15 [History] Past Medical History - Past Health History Medical/Surgical History: Denies Medical/Surgical History HEENT History: Reports: Impaired Vision Cardiovascular History: Reports: None Respiratory History: Reports: None Gastrointestinal History: Reports: None Genitourinary History: Reports: None Musculoskeletal History: Reports: Other (See Below) Neurological History: Reports: Other (See Below) Other Neuro History: cataplexy Psychiatric History: Reports: Addiction, Depression Endocrine/Metabolic History: Reports: None Hematologic History: Reports: None Immunologic History: Reports: None Oncologic (Cancer) History: Reports: None Other Dermatologic History: Tattoos - Infectious Disease History Infectious Disease History: Reports: None - Past Surgical History Head Surgeries/Procedures: Reports: None Social & Family History - Family History Family Medical History: No Pertinent Family History - Tobacco Use Tobacco Use Status *Q: Current Every Day Tobacco User Years of Tobacco use: 10 Packs/Tins Daily: 1 - Caffeine Use Caffeine Use: Reports: Coffee, Energy Drinks, Soda, Tea, Other Other Caffeine Use: 12 cans mt. dew /day - Recreational Drug Use Recreational Drug Use: Yes Recreational Drug Type: Reports: Marijuana/Hashish - Living Situation & Occupation Living situation: Reports: Single Occupation: Employed ED ROS ENT - Review of Systems Review Of Systems: Comprehensive ROS is negative, except as noted in HPI. ED EXAM, ENT - Physical Exam Exam: See Below Eye Exam: Bilateral Eye: EOMI, PERRL Ears: Normal External Exam, Normal Canal, Hearing Grossly Normal, Normal TMs Nose: Normal Inspection, Normal Mucousa, No Blood Mouth/Throat: Dental Tenderness (on the left lower molars. Cavities also noted. A couple of his molars have also decayed.) Head: Atraumatic, Normocephalic Neck: Normal Inspection, Supple, Non-Tender, Full Range of Motion Respiratory/Chest: No Respiratory Distress, Lungs Clear, Normal Breath Sounds, No Accessory Muscle Use, Chest Non-Tender Cardiovascular: Normal Peripheral Pulses, Regular Rate, Rhythm, No Edema, No Gallop, No JVD, No Murmur, No Rub GI/Abdominal: Normal Bowel Sounds, Soft, Non-Tender, No Organomegaly, No Distention, No Abnormal Bruit, No Mass Neurological: Alert, Oriented Psychiatric: Normal Affect, Normal Mood Skin: Warm Lymphatic: No Adenopathy Course - Vital Signs Last Recorded V/S: Last Vital Signs Temp 97.2 F 11/18/20 21:18 Pulse 76 11/18/20 21:18 Resp 18 11/18/20 21:18 BP 145/96 H 11/18/20 21:18 Pulse Ox 100 11/18/20 21:18 - Orders/Labs/Meds Meds: Medications Discontinued Medications Generic Name Dose Route Start Last Admin Trade Name Rishabh PRN Reason Stop Dose Admin Ketorolac Tromethamine 30 mg 11/18/20 20:54 11/18/20 21:04 Ketorolac 30 Mg/Ml Sdv IM 11/18/20 20:55 30 mg ONETIME ONE Administration Penicillin V Potassium 500 mg 11/18/20 21:00 11/18/20 21:04 Penicillin V Potassium 250 Mg Tab PO 11/18/20 21:01 500 mg Q12HR ONE Administration - Re-Assessments/Exams Free Text/Narrative Re-Assessment/Exam: Advised concerning of exam findings. Toradol 30 mg IM administered. Encourage patient to follow-up with dentist. Penicillin VK 500 mg administered in the ER with an Rx sent home with patient. Encourage patient to finish antibiotic tr eatment. Also encouraged dental hygiene. ibuprofen /Tylenol as needed for discomfort. 11/18/20 21:37 Departure - Departure Time of Disposition: 21:06 Disposition: Home, Self-Care 01 Condition: Good Clinical Impression: Pain, dental, Dental cavities - Discharge Information Forms: ED Department Discharge Additional Instructions: Encourage patient to finish antibiotic treatment. Also encouraged dental hygiene. Ibuprofen /Tylenol as needed for discomfort. Follow-up with dentist. Sepsis Event Note (ED) - Evaluation Sepsis Screening Result: No Definite Risk - Focused Exam Vital Signs: Vital Signs Temp Pulse Resp BP Pulse Ox 11/18/20 21:18 97.2 F 76 18 145/96 H 100 11/18/20 19:15 96.8 F L 52 L 20 175/107 H 100
[2020-11-18 21:20] VITALS: BP 145/96; PULSE 76
== END 2020-11-18 21:20 | disposition home or self-care (01) ==
LOC: DL.ED 18:57
DX: K02.9 Dental caries, unspecified (principal); Z72.0 Tobacco use
CPT/HCPCS: 96372; 99282; A9270; J1885; 99283

== ENCOUNTER 2021-06-03 22:49 | Emergency (ER) | payer MEDICAID ==
[2021-06-03 23:03] VITALS: PULSE 105
[2021-06-03 23:54] LABS: CORONAVIRUS COVID-19 NAA POSITIVE (NEGATIVE)
== END 2021-06-04 00:17 | disposition left against medical advice (07) ==
LOC: DL.ED 22:49
DX: R50.9 Fever, unspecified (principal); Z53.21 Procedure and treatment not carried out due to patient leaving prior to being seen by health care provider; Z20.822 Contact with and (suspected) exposure to COVID-19
CPT/HCPCS: 0240U

== ENCOUNTER 2025-01-20 13:01 | Emergency (ER) | payer MEDICAID ==
[2025-01-20] MEDS: Ketorolac 30 MG/ML SDV IM ONE (13:31)
[2025-01-20 13:37] VITALS: BP 141/85; PULSE 85
== END 2025-01-20 13:31 | disposition home or self-care (01) ==
LOC: DL.ED 13:01
DX: K04.7 Periapical abscess without sinus (principal); Z79.899 Other long term (current) drug therapy
CPT/HCPCS: 96372; 99282; J1885

== ENCOUNTER 2025-01-25 13:38 | Emergency (ER) | payer MEDICAID ==
[2025-01-25] MEDS ORDERED: Sodium Chloride 0.9% 10 ML Syringe FLUSH PRN (14:00)
[2025-01-25] MEDS: Ondansetron 4 MG/2 ML SDV IVPUSH ONE (14:09)
[2025-01-25] MEDS: fentaNYL 100 MCG/2 ML SDV IVPUSH ONE (14:09)
[2025-01-25 14:17] LABS: BASOPHILS PERCENT AUTO 0.2 % (0.0-1.0); EOSINOPHILS PERCENT AUTO 2.0 % (1.0-3.0); LYMPHOCYTES PERCENT AUTO 28.2 % (20.5-50.1); MONOCYTES PERCENT AUTO 7.4 % (2-8); NEUTROPHILS PERCENT AUTO 62.2 % (42.2-75.2); PLATELET COUNT,PLT 525 10^3/uL (150-450); RED BLOOD CELL COUNT 5.57 10^6/uL (4.6-6.2); WHITE BLOOD CELL COUNT,WBC 13.8 10^3/uL (5.0-10.0)
[2025-01-25 14:38] LABS: A/G RATIO 1.1; ALANINE AMINOTRANSFERASE,ALT 77 U/L (16-63); ASPARTATE AMNIOTRANSFERASE,AST 30 U/L (15-37); BILIRUBIN TOTAL 0.3 mg/dL (0.2-1.0); BLOOD UREA NITROGEN,BUN 15 mg/dL (7-18); CARBON DIOXIDE,CO2 30 mmol/L (21-32); CHLORIDE,CL 103 mmol/L (98-107); CREATININE 0.88 mg/dL (0.70-1.30); GLUCOSE RANDOM 103 mg/dL (70-99); POTASSIUM,K 4.3 mmol/L (3.5-5.1); PROTEIN TOTAL,TP 8.2 g/dL (6.4-8.2); SODIUM,NA 140 mmol/L (136-145)
[2025-01-25 14:39] LABS: ESTIMATED GFR 116 mL/min (>=60)
[2025-01-25] MEDS: Iopamidol 612 MG/ML 100 ML Bottle IVPUSH ONE (14:46)
[2025-01-25] MEDS: Ketorolac 30 MG/ML SDV IVPUSH ONE (15:56)
[2025-01-25] MEDS: Lidocaine 2% Viscous Solution 15 ML UD TOP ONE (15:58)
[2025-01-25 18:57] VITALS: BP 156/113; PULSE 53
== END 2025-01-25 17:50 | disposition home or self-care (01) ==
LOC: DL.ED 13:38
DX: K04.7 Periapical abscess without sinus (principal); D72.828 Other elevated white blood cell count; Z79.899 Other long term (current) drug therapy
CPT/HCPCS: 36415; 41800; 70491; 80053; 85025; 86140; 96374; 96375; 99284; A9270; J0665; J1885; J2270; J2405; J3010; J3490; Q9967

== ENCOUNTER 2025-01-26 00:36 | Emergency (ER) | payer MEDICAID ==
[2025-01-26 00:59] VITALS: PULSE 73
[2025-01-26] MEDS: Lidocaine 2% Viscous Solution 15 ML UD PO ONE (01:28)
[2025-01-26 02:31] VITALS: BP 155/112
== END 2025-01-26 02:31 | disposition home or self-care (01) ==
LOC: DL.ED 00:36
DX: K04.7 Periapical abscess without sinus (principal); Z79.899 Other long term (current) drug therapy
CPT/HCPCS: 99283; J3490; 99282; A9270-GY